=== PATIENT | female | born 1940 | race Caucasian/White ===

== ENCOUNTER → 2017-06-14 | Outpatient (CLI) | payer OTHER, MEDICARE | LOC: BHFA 16:15 | PROVIDERS: ATTEND Internal Medicine Cardiovascular Disease | DX: I25.10 Atherosclerotic heart disease of native coronary artery without angina pectoris (principal); I10 Essential (primary) hypertension ==

== ENCOUNTER → 2017-07-12 | Outpatient (CLI) | payer OTHER, MEDICARE | LOC: FIMAGING 12:51 | PROVIDERS: ATTEND Internal Medicine | DX: S62.111A Displaced fracture of triquetrum [cuneiform] bone, right wrist, initial encounter for closed fracture (principal) ==

== ENCOUNTER → 2017-08-06 | Outpatient (CLI) | payer OTHER, MEDICARE | LOC: BHFA 13:15 | PROVIDERS: ATTEND Internal Medicine | DX: I25.10 Atherosclerotic heart disease of native coronary artery without angina pectoris (principal); I49.9 Cardiac arrhythmia, unspecified ==

== ENCOUNTER → 2017-10-28 | Outpatient (CLI) | payer OTHER, MEDICARE | LOC: BHFA 15:30 | PROVIDERS: ATTEND Internal Medicine Cardiovascular Disease | DX: I37.9 Nonrheumatic pulmonary valve disorder, unspecified (principal); I25.10 Atherosclerotic heart disease of native coronary artery without angina pectoris ==

== ENCOUNTER 2018-04-22 19:56 | Inpatient (IN) | payer OTHER, MEDICARE ==
[2018-04-22] MEDS ORDERED: LORazepam 0.5 MG TAB PO PRN (22:52)
[2018-04-22] MEDS ORDERED: SKIN ADHESIVE (DERMABOND) 1 EACH TP ONE (22:54)
[2018-04-22] MEDS ORDERED: NS 1,000 ML IV SCH (23:00)
--- NOTE | 2018-04-22 23:13 | EDPHY ---
H & P Stated Complaint: tripped and fell , no ,loc r wrist pain and r hip no walk - Personal History Current Tetanus/Diphtheria Vaccine: No Current Tetanus Diphtheria and Acellular Pertussis (TDAP): No - Medical/Surgical History Hx Asthma: No Hx Chronic Respiratory Disease: No Hx Diabetes: No Hx Cardiac Disease: Yes Hx Renal Disease: No Hx Cirrhosis: No Hx Alcoholism: No Hx HIV/AIDS: No Hx Splenectomy or Spleen Trauma: No Other PMH: benighn tremor, junctional tachycardia, chronic eyelash problems, hypothyroid, NIKOLSKI - Social History Smoking Status: Never smoked Time Seen by Provider: 04/22/18 20:10 HPI/ROS: Chief complaint: Trip and fall with right wrist and right hip pain History of present illness: This is a 78-year-old female who lives in [facility] who presents to the emergency department for evaluation after sustaining a mechanical trip and fall injuring her right wrist and hip. She was outside walking when she tripped over a curb. She did hit her head and sustained a small cut. She did not lose consciousness. No report of headache. No report of neck pain, back pain, chest pain, abdominal pain, no report of neurologic symptoms including paresthesias, or paralysis or bowel or bladder dysfunction. Review of systems: A 10 point review of systems was obtained and other than described above was negative (Sajan Reilly) - Physical Exam Exam: General Appearance: Alert, nontoxic Eyes: PERRLA ENT: No hemotympanum, no dee sign, no raccoon eyes Respiratory: Lungs clear to auscultation bilaterally Cardiac: Regular rate and rhythm. Gastrointestinal: Bowel sounds normal. Abdomen is soft, nondistended, nontender Neurological: Alert. Strength and sensation intact and symmetrical. Skin: 1 cm laceration approximates well to the right forehead Musculoskeletal: The head is nontender. The spine is nontender. The chest wall is nontender. Patient's right wrist is tender, hip is uncomfortable to palpation, difficulty moving the right hip. The rest of the extremities are unremarkable. (Sajan Reilly) Constitutional: Initial Vital Signs Temperature (C) 36.8 C 04/22/18 19:59 Heart Rate 67 04/22/18 19:59 Respiratory Rate 16 04/22/18 19:59 Blood Pressure 159/84 H 04/22/18 19:59 O2 Sat (%) 93 06/01/18 19:59 O2 Delivery Mode Room Air Allergies/Adverse Reactions: hydrocodone bitartrate [From Lortab] Allergy (Verified 04/22/18 20:04) tapentadol [From Nucynta] Allergy (Verified 04/22/18 20:05) Home Medications: Medication Instructions Recorded Propranolol HCl [Inderal] 10 mg PO TID PRN 11/16/15 Amoxicillin/Potassium Clav 1 tab PO BID 04/23/18 [Amox-Clav 500-125 mg Tablet] Aspirin EC [Aspirin EC 81 mg (*)] 81 mg PO DAILY 04/23/18 Levothyroxine Sodium 75 mcg PO DAILY 04/23/18 Magnesium Oxide [Magnesium Oxide 200 mg PO 5XD PRN 04/23/18 400 mg (*)] Tears/Dextran 70/Hypromellose 1 drop EACHEYE DAILY PRN 04/23/18 [Natural Balance Tears (*)] Medical Decision Making - Diagnostics Imaging: Discussed imaging studies w/ call center operations manager Radiologist, I viewed and interpreted images myself Procedures: Procedure: Laceration repair. Verbal consent was obtained from the patient. The 1 cm laceration on the right forehead was anesthetized in the usual fashion. The wound was irrigated, draped and explored to its base with a gloved finger. There were no deep structures involved. No tendon injury was identified. The wound was repaired with Dermabond. The wound repair was simple. The procedure was performed by myself. (Sajan Reilyl) ED Course/Re-evaluation: Patient is seen under the supervision of my secondary supervising physician Dr. Lorri Maldonado. Patient presents to the emergency room after a mechanical trip and fall. She has sustained a right wrist fracture and right-sided pelvic fracture. She is unable to ambulate. I have consulted with the hospitalist, Dr. Jesika Patton who will accept this patient. I have consulted with Orthopedics, Dr. Meir Wilkerson who will consult on this patient. He recommends a Velcro splint for the right wrist. Plan has been discussed with the patient voiced understanding and agreement with it. (Sajan Reilly) The patient was evaluated and managed by the physician therapeutic recreation assistant. I have reviewed this chart and I agree with the findings and plan of care as documented , as indicated by my signature. I am the secondary supervising physician. ( Lorri Maldonado) Differential Diagnosis: Included but not limited to contusion, sprain or strain, bony fracture, no evidence of precipitating event such as syncope (Sajan Reilly) - Data Points Medications Given: Enoxaparin Sodium (Lovenox) 40 mg SC DAILY MINISTERIO Stop: 10/20/18 08:59 Last Admin: 04/23/18 09:34 Dose: 40 mg Morphine Sulfate (Morphine) 1 - 2 mg IVP Q2HRS PRN PRN Reason: Pain, Breakthrough Stop: 05/03/18 01:29 Last Admin: 04/23/18 04:23 Dose: 2 mg Ondansetron HCl (Zofran) 4 mg IVP Q4HRS PRN PRN Reason: Nausea/Vomiting, Can't Take PO Stop: 10/19/18 22:51 Last Admin: 04/23/18 00:28 Dose: 4 mg Throat Lozenges (Cepacol Lozenge) 1 ea PO PRN PRN PRN Reason: Sore Throat Stop: 10/20/18 01:51 Last Admin: 04/23/18 02:31 Dose: 1 ea Discontinued Medications Acetaminophen (Tylenol) 650 mg PO Q6HRS PRN PRN Reason: Pain, Mild/Fever, Can Take PO Stop: 10/20/18 00:29 Last Admin: 04/23/18 11:16 Dose: 650 mg Sodium Chloride (Ns) 1,000 mls @ 75 mls/hr IV CONT MINISTERIO Stop: 10/19/18 22:59 Last Admin: 04/23/18 00:32 Dose: 1,000 mls Levothyroxine Sodium (Synthroid) 88 mcg PO DAILY AT 6AM MINISTERIO Stop: 10/20/18 05:59 Last Admin: 04/23/18 06:10 Dose: 88 mcg Magnesium Oxide (Magnesium Oxide) 400 mg PO HS MINISTERIO Stop: 10/20/18 00:44 Last Admin: 04/23/18 02:38 Dose: Not Given Morphine Sulfate (Morphine) 1 - 4 mg IVP Q3HRS PRN PRN Reason: Pain, Breakthrough Stop: 05/02/18 22:51 Last Admin: 04/23/18 02:29 Dose: 2 mg Departure - Departure Clinical Impression: Wrist fracture, right Qualifiers: Encounter type: initial encounter Fracture type: closed Qualified Code(s): S62.101A - Fracture of unspecified carpal bone, right wrist, initial encounter for closed fracture Pelvic fracture Qualifiers: Encounter type: initial encounter Pelvic bone location: unspecified part of pelvis Fracture type: closed Fracture alignment: nondisplaced Qualified Code(s) : S32.9XXA - Fracture of unspecified parts of lumbosacral spine and pelvis, initial encounter for closed fracture Forehead laceration Qualifiers: Encounter type: initial encounter Qualified Code(s): S01.81XA - Laceration without foreign body of other part of head, initial encounter
--- NOTE | 2018-04-23 00:26 | PDGENHP ---
History and Physical - Chief Complaint Right hip pain, right wrist pain, fall - History of Present Illness Source-patient provides history appears reliable. EMR was reviewed and case discussed with ED provider. HPI-this is a very pleasant 78-year-old female with past medical history significant for HTN, hypothyroidism and osteoporosis who presents emergency department today following a mechanical fall while trying to step up occur. Patient denies any associated lightheadedness, chest pain or palpitations. She reports a chronic history of some mild dyspnea with any outdoor contact and a description of recurrent generalized weakness whenever she goes outside.. She denies any acute change from this baseline today. Patient missed stepped trying to get open over the curve which she attributes to this experience of generalized weakness making it difficult for her to lift her leg up over the occur. She denies any focal deficits prior to this event or after. She did strike the right side of her head, her right arm and right leg. Patient denies any numbness or tingling. She denies any current headache, chest pain, palpitations, shortness of breath. Patient is complaining of muscle spasms in the proximal leg and pelvis. She denies any fevers chills or recent illness. History Information - Allergies/Home Medication List Allergies/Adverse Reactions: acetaminophen [From Lortab] Allergy (Verified 04/22/18 20:04) hydrocodone bitartrate [From Lortab] Allergy (Verified 04/22/18 20:04) tapentadol [From Nucynta] Allergy (Verified 04/22/18 20:05) Home Medications: H R T 11/16/15 [Last Taken Unknown] Levothyroxine [Synthroid] 88 mcg PO DAILY06 11/16/15 [Last Taken Unknown] Propranolol HCl [Inderal] 10 mg PO 11/16/15 [Last Taken Unknown] I have personally reviewed and updated: family history, medical history, social history, surgical history - Past Medical History Additional medical history: HTN, hypothyroidism, osteoporosis. Patient also reports that she had an extensive cardiac workup including stress test, echocardiogram and cardiology consultation in 2017 which was negative. - Surgical History Additional surgical history: Right patellar fracture repair, cataract extraction with lens placement, right 2nd hammertoe - Family History Additional family history: Patient denies any HTN, dm 2, osteoporosis. - Social History Smoking Status: Never smoked Alcohol Use: None Drug Use: None Additional social history: Patient resides in independent living at [facility]. Cor status is DNR DNI. Review of Systems Review of Systems: ROS: 10pt was reviewed & negative except for what was stated in HPI & below Constitutional: Reports: no symptoms, weakness (See HPI generalized 1 outdoors.) . Denies: chills, fever EENMT: Reports: no symptoms Cardiac: Reports: no symptoms Respiratory: Reports: shortness of breath. Denies: cough Gastrointestinal: Reports: no symptoms Genitourinary: Reports: no symptoms Muscolosketal: Reports: muscle pain (Right wrist, right hip) Skin: Reports: other (Abrasion to right forehead) Neurological: Reports: no symptoms, weakness (Generalized see above). Denies: numbness, tingling Hematologic/Lymphatic: Reports: no symptoms Physical Exam Physical Exam: Selected Entries 04/22/18 19:59 Blood Pressure Automatic Method Heart Rate 67 Respiratory 16 Rate O2 Sat (%) 93 Temperature (C) 36.8 C Blood Pressure 159/84 H Mean Arterial 109 H Pressure (MAP) O2 Delivery Room Air Mode Temperature Oral Source Temp Pulse Resp BP Pulse Ox 36.5 C 73 17 146/69 H 92 04/22/18 23:46 04/22/18 23:46 04/22/18 23:46 04/22/18 23:46 04/22/18 23:46 Constitutional: no apparent distress, chronically ill appearing, uncomfortable, other (NAD. Patient lays comfortably in bed. Pleasant adult female. Quite anxious.) Eyes: PERRL, anicteric sclera, EOMI, No scleral injection Ears, Nose, Mouth, Throat: no oral mucosal ulcers, dry mucous membranes, other ( No nasal discharge.), No poor dentition Cardiovascular: regular rate and rhythym, no murmur, rub, or gallop, No systolic murmur, No edema Peripheral Pulses: 2+: dorsalis-pedis (R), dorsalis-pedis (L) Respiratory: no respiratory distress, no rales or rhonchi, clear to auscultation , No respiratory distress Gastrointestinal: normoactive bowel sounds, soft, non-tender abdomen, no palpable masses, No distension (Abdomen soft but full) Genitourinary: no bladder tenderness, No antunez in urethra Skin: warm, abrasion (Right forehead and temp), No rash Musculoskeletal: pain with ROM (Right wrist, right hip), generalized weakness Neurologic: AAOx3, sensation intact bilaterally, CN II-XII Intact, other ( Nonfocal exam.), No numbness, No facial droop Psychiatric: interacting appropriately, not encephalopathic, thought process linear, anxious, No depressed, No suicidal ideation, No poor insight, No poor judgement, No poor memory Lab Data & Imaging Review 04/22/18 22:55 04/22/18 22:55 WBC 10.74 10^3/uL (3.80-9.50) H 04/22/18 22:55 RBC 4.67 10^6/uL (4.18-5.33) 04/22/18 22:55 Hgb 14.6 g/dL (12.6-16.3) 04/22/18 22:55 Hct 42.5 % (38.0-47.0) 04/22/18 22:55 MCV 91.0 fL (81.5-99.8) 04/22/18 22:55 MCH 31.3 pg (27.9-34.1) 04/22/18 22:55 MCHC 34.4 g/dL (32.4-36.7) 04/22/18 22:55 RDW 13.8 % (11.5-15.2) 04/22/18 22:55 Plt Count 306 10^3/uL (150-400) 04/22/18 22:55 Sodium 138 mEq/L (135-145) 04/22/18 22:55 Potassium 3.7 mEq/L (3.3-5.0) 04/22/18 22:55 Chloride 101 mEq/L (97-110) 04/22/18 22:55 Carbon Dioxide 28 mEq/l (22-31) 04/22/18 22:55 Anion Gap 9 mEq/L (8-16) 04/22/18 22:55 BUN 18 mg/dL (7-23) 04/22/18 22:55 Creatinine 0.6 mg/dL (0.6-1.0) 04/22/18 22:55 Estimated GFR > 60 04/22/18 22:55 Glucose 102 mg/dL (70-100) H 04/22/18 22:55 Calcium 8.8 mg/dL (8.5-10.4) 04/22/18 22:55 Imaging Review: Right Hip, Two Views Indication: R/O FX Technique: AP and crosstable lateral views. Comparison: None Findings: The demineralized bones are anatomically aligned. No displaced femoral neck fracture. The pelvic ring is intact. Sclerotic symmetric foci in bilateral inferior pubic rami are suggestive of old or subacute fractures. Impression: 1. No femoral neck fracture. 2. Age indeterminate inferior pubic rami fractures, favor old/subacute. Right Wrist Series, 4 views 20:16 Indication: R/O FX FALL. Comparison: Right wrist series dated July 12, 2017 Findings: A comminuted intra-articular distal radius fracture consists of a transverse fracture and an oblique intra-articular fracture coursing through the base of the radial styloid. The radial styloid fracture fragment is translated volarly. No significant articular step- off. The distal ulna and carpal bones are intact. Specifically,, no navicular fracture. The scapholunate interval is within normal limit. Impression: Acute impacted and displaced intra-articular distal radius fracture. CT right hip without contrast Indication: Right pelvic pain. Inability to bear weight. Recent fall. Technique: 1.5 mm thick helically acquired slices were obtained through the pelvis. The data was reconstructed in soft tissue and bone algorithm. 3-D volume rendered reformations were performed to optimally characterize the potential fracture planes. Comparison: Right hip series dated April 22, 2018. Findings: The right inferior pubic ramus nondisplaced fracture is acute. The left inferior pubic ramus fracture is old and healed with minimal deformity. An acute subtle buckle fracture courses through the posterior cortex of the right pubic bone. A nondisplaced fracture courses through the anterior cortex of the right anterior acetabular column. No acute sacral or femoral neck fracture. The bones are diffusely demineralized limiting sensitivity for detecting fractures. No hematoma or free fluid in the pelvis. Moderate constipation. Urinary bladder is normal. The partially visualized abdominal aorta is normal caliber moderate calcified plaque. Impression: 1. Acute right inferior pubic ramus fracture. 2. Acute buckle fracture right pubic bone. 3. Acute nondisplaced fracture anterior right acetabular column. Findings discussed with Emergency Department physician assistant teacher primary, MARY Singh at 04/22/2018 22: 35. Visualized and Interpreted imaging results: Yes Assessment & Plan Assessment: 78-year-old female with history HTN, hypothyroidism and osteoporosis who presents emergency department following a mechanical fall without LOC. 1. Acute nondisplaced fracture anterior right acetabular column - patient will be placed on bed rest/nonweightbearing on the right leg pending Orthopedic recommendations in the morning. Do not anticipate any surgical interventions however have made patient NPO pending Ortho evaluation and treatment plan.. 2. Acute right inferior pubic rami fracture - PT OT. Non operative. Plan as above. 3. Acute buckle fracture right pubic bone - as above. 4. Acute right distal radial fracture - patient currently in a Velcro splint as per Orthopedic recommendations. She has good cap refill but is complaining of the splint feeling too tight. 5. Mechanical fall - PT OT consultation. Patient without history of preceding near syncope or chest pain. She has previously had complete cardiac workup do not suspect a arrhythmia, PE or other respiratory issues at this time. Bed alarm in place particularly well patient is receiving narcotics. 6. Acute pain due to trauma - patient is very anxious regarding use of any kind of medications. Her initial allergy list noted acetaminophen with hydrocodone likely combination medication but she denies that she has any issues with plain Tylenol. This is been added. Patient also reports that remotely for surgery she did tolerate morphine quite well without concerns for nausea or sedation. She is amenable to a trial of low-dose morphine. Reassured that antiemetics are available to assist with this side effect. I did clarify with the patient has not in a true allergy and that if she is in a significant amount of pain limiting her ability to mobilize then we should focus on her pain control and she is agreeable to this plan.. Chronic medical problems Benign essential hypertension - blood pressures initially elevated likely related to pain. Blood pressures have improved. Will plan to resume patient's home medications once we can verify her med rec. Hypothyroidism - continue L-thyroxine replacement once we can update med rec. FEN - patient does appear slightly dry. She will receive some IV fluid hydration overnight particularly while she will be NPO pending Orthopedic evaluation in the morning. Electrolytes do not require replacement at this time. PPX-SCDs holding anticoagulation pending Orthopedic evaluation the morning. Cor status-is DNR DNI. Disposition-patient admitted to inpatient status given the multiple fractures and patient limited mobility. Anticipate greater than 2 midnight stay. Consultations-orthopedic surgery consulted from the emergency department. Case Management to assist with evaluation for placement. She does currently reside at [facility].
[2018-04-23] MEDS: ONDANSETRON 4 MG/2 ML VIAL IVP PRN ×2 (00:28→23:20)
[2018-04-23] MEDS ORDERED: ACETAMINOPHEN 325 MG TAB PO PRN (00:30)
[2018-04-23] MEDS ORDERED: MAGNESIUM OXIDE 400 MG TAB PO SCH (00:45)
--- NOTE | 2018-04-23 01:16 | PDMN ---
Medical Necessity Medical necessity: C/M review: est. > 2 MN LOS for acute non displaced fracture anterior right acetabular column, acute right inferior pubic rami fracture, acute buckle fracture right pubic bone, acute right distal radial fracture, acute pain due to trauma, limited mobility, requiring planned Orthopedic consult, Case Management consult, ongoing IV fluids, IV Morphine / IV Zofran as needed, acute inpt PT/OT, comorbid mechanical fall just prior to this admission, benign essential hypertension, hypothyroidism, osteoporosis per H/P.
--- NOTE | 2018-04-23 01:30 | PDCONSULT ---
Visitor Services Assistant Note: Ms. Baugh tripped on a curb and fell yesterday evening before dark. She came to the [facility] ED for evaluation and was found to have multiple injuries and was admitted to the Hospitalist service. Dr. Patton paged me at 01:15 to request a Trauma Service Consultation. My consult note was dictated #[id number] Stacey Menchaca MD, FACS
[2018-04-23] MEDS ORDERED: CEPACOL LOZENGE PO PRN (01:52)
[2018-04-23] MEDS ORDERED: traMADol 50 MG TAB PO PRN (03:59)
[2018-04-23] MEDS ORDERED: LEVOTHYROXINE 88 MCG TAB PO SCH (06:00)
--- NOTE | 2018-04-23 09:22 | TRAUMAPN ---
Trauma Progress Note Assessment/Plan: Follow-up on Mrs. Baugh from consultation early this morning. Patient has no additional complaints. She does report weakness with ambulation outside of her house. Cardiac evaluation prior to this has been negative. Chest x-ray is pending this morning she has complaints of right lower rib pain anteriorly pain with ambulation in her right hip and a possibly a splinter in 1 of her fingers of her right hand. Formal tertiary evaluation be done tomorrow. Follow-up chest x-ray will be reviewed when available. Objective: Vital Signs Temp Pulse Resp BP Pulse Ox 37.2 C 69 16 124/66 H 95 04/23/18 08:00 04/23/18 08:00 04/23/18 08:00 04/23/18 08:00 04/23/18 08:00 Laboratory Results 04/23/18 04:26 04/22/18 22:55 04/22/18 04/23/18 04/24/18 05:59 05:59 05:59 Intake Total 250 Output Total 250 Balance -250 250
[2018-04-23] MEDS: ENOXAPARIN 40 MG/0.4 ML SYR SC SCH (09:34)
--- NOTE | 2018-04-23 09:55 | ASMTCMCOM ---
CM Note CM Note Notes: Patient admitted after a fall at home. She suffered multiple fractures - R pubic rami, R acetabular column, R distal radius. She is NWB on R side. She lives at [facility]. PT/OT evals pending, but I anticipate she'll need SNF rehab. I have sent a referral to and left a message with [facility] requesting a private room. Case Management will follow. Date Signed: 04/23/2018 09:54 AM Electronically Signed By:Yue Atkinson RN
--- NOTE | 2018-04-23 10:05 | GCON ---
[f rep st] CONSULTATION SURGICAL CONSULTATION. DATE OF CONSULTATION: 04/23/2018 CHIEF COMPLAINT: Right hip and wrist pain. HISTORY OF PRESENT ILLNESS: The patient is a 78-year-old female who tripped over curb while walking around her apartment complex at [facility] where she lives independently. The patient struck the right side of her body, broke her fall with her right arm and sustained an injury to her right forehead, right side of her chest, right wrist and right hip. She came to the emergency room was seen and evaluated there. Plain films initially were performed and after attempting ambulation, she experienced severe pain in the right hip and additional imaging with CT was performed which disclosed an acetabular fracture. She was also found to have a right distal radius fracture. She was admitted to the hospitalist service. Dr. Jesika Patton saw the patient and contacted me on 04/23/2018 at 0115 hours for trauma surgical consultation. The patient is in room [facility]. She is awake and alert and is able to recount the entire history of her fall in detail. She does have pain in the right wrist as well as in the right hip and has what she thinks are bruised ribs on the right side. She denies any loss of consciousness. She has had no headaches, visual disturbances. Denies neck, chest, or back pain. PAST MEDICAL HISTORY: Significant for hypothyroidism. PAST SURGICAL HISTORY: ORIF right patellar injury age 21. ALLERGIES: Hydrocodone and tapentadol. CHRONIC MEDICATIONS: HRT, levothyroxine 88 mcg p.o. daily, and propranolol 10 mg p.o. b.i.d. She is a nonsmoker. Denies alcohol use. The patient fell and had a significant pelvic fracture approximately 20 years ago, which healed without operative intervention. Her only surgery is a tubal ligation at age 42. SOCIAL HISTORY: Patient lives independently at [facility]. FAMILY HISTORY: Noncontributory. REVIEW OF SYSTEMS: Pertinent negatives mentioned in history of present illness include no headaches, visual disturbances, nausea, vomiting, abdominal pain, neck, or back pain. Patient has chronic urinary incontinence and wears an adult diaper, although this is not continuous, but intermittent. PHYSICAL EXAMINATION: VITAL SIGNS: Blood pressure 146/69, heart rate 73, respiratory rate 16, O2 saturation is 92% on room air, temperature is 36.5. The patient is a pleasant, somewhat anxious woman who appears her age. HEENT: Patient has a minor laceration over the right eyebrow with some surrounding contusion. There is tenderness of the area, but no crepitus. Pupils are 2 mm, round, reactive to light. The extraocular movements are intact. Trachea is midline. No jugular venous distention. No tenderness of the cervical, thoracic , or lumbar spine. CHEST: Is mildly tender to compression laterally over the right side. There is no anterior sternal tenderness. ABDOMEN: Soft and nontender without hepatosplenomegaly or mass. PELVIS: Is nontender to anterior compression over the pubis. There is tenderness over the lateral compression over the hip. Femoral and pedal pulses are plus 2 and symmetrical. The patient has symmetrical deep tendon reflexes. She has a scar over the right patellar tendon below the knee transversely, which is well healed. There is mild tenderness to flexion of the hip. IMAGING STUDIES: Were reviewed and reveal a minimally displaced anterior column acetabular fracture without associated hip fracture. There is a healed inferior pubic ramus and pubic fracture related to her prior pelvic fracture 20 years ago. There is a comminuted intra-articular fracture of the distal radius on the right side. LABORATORY STUDIES: WBC was 10.7, hemoglobin 14.6, hematocrit 42.5, platelet count 306. Basic metabolic panel: Sodium was 138, potassium 3.7, chloride 101 , bicarb 28, BUN 18, creatinine 0.6, glucose 102, calcium 8.8. IMPRESSION: 1. Status post mechanical fall with closed head injury. No loss of consciousness. 2. Right comminuted distal radius fracture, intra-articular. 3. Nondisplaced anterior column right acetabular fracture without associated hip fracture. 4. History of prior pelvic fracture at age 58. 5. Remote right patellar fracture, age 22. 6. Hypothyroidism. 7. History of urinary incontinence. RECOMMENDATIONS: 1. Recommend orthopedic consultation. Continue immobilization of the right wrist with a volar splint and physical therapy, occupational therapy, speech therapy evaluation per trauma protocols. Comfort measures. Trauma service will follow /[id number]/MODL MTDD
--- NOTE | 2018-04-23 11:26 | GCON ---
[f rep st] CONSULTATION ORTHOPEDIC ER CONSULTATION DATE OF CONSULTATION: 04/23/2018 CHIEF COMPLAINT: 1. Right wrist pain. 2. Right hip pain. DIAGNOSIS: 1. Comminuted intra-articular right distal radius fracture. 2. Right stable pelvis and possible anterior wall acetabular fracture. Please see details of ER H and P and admitting H and P. HISTORY OF PRESENT ILLNESS: A 78-year-old female who lives at [facility]. S he has no grown children. No or boyfriend. She had a mechanical fall. Triaged to the emerg ency room. X-rays of her wrist show an intra-articular distal radius fracture with reasonable latera l alignment, but she failed walking out of the emergency room secondary to right hip pain. X-rays lo oked reportedly negative, but a CT scan showed an inferior rami fracture and possible lucency of the anterior wall of the right acetabulum. Please see details of ER and admitting H and P. PHYSICAL EXAMINATION: GENERAL: Pertinent orthopedic examination reveals a well-appearing female. S he had many questions today at the bedside. UPPER EXTREMITIES: The right wrist had a well-approxima john Velcro splint. Intact EPL, FPL, interossei, and instructor warper. Fingers were not swollen. Wrist is swoll en. Bilateral elbows and shoulders without any pain. ABDOMEN: Soft. PELVIS: Stable. LOWER EXTRE MITIES: Right lower extremity had intact tib ant, gastrocsoleus, EHL, FHL. She is able to bridge up , as well as do heel slides on that side. Imaging reviewed. IMPRESSION: 1. Right distal radius fracture, comminuted, intra-articular. Consider bracing. Followup x-rays in a week. 2. Right pelvis injury with nondisplaced component of the inferior rami and possible anterior wall, nondisplaced. RECOMMENDATION: Elbow weightbearing on the right upper extremity. Full weightbearing on the left up per extremity. Full weightbearing on bilateral lower extremities with a walker for 6 weeks. PT, OT, and case coordination. Anticipate rehab or SNF. Thirty minutes at the bedside. /[id number]/MODL
--- NOTE | 2018-04-23 13:58 | CPEKG ---
Heart Rate: 64 RR Interval: 938 P-R Interval: 172 QRSD Interval: 70 QT Interval: 452 QTC Interval: 467 P [place]: 36 QRS [place]: 23 T Wave [place]: 52 EKG Severity - NORMAL ECG - EKG Impression: SINUS RHYTHM Electronically Signed By: Jose Brown 23-Apr-2018 23:52:17
[2018-04-23] MEDS ORDERED: TEARS/DEXTRAN 70/HYPROMELLOSE 15 ML OPHT.BTL EACHEYE PRN (14:05)
[2018-04-23] MEDS ORDERED: PROPRANOLOL HCL 10 MG TAB PO PRN (14:05)
--- NOTE | 2018-04-23 14:05 | HOSPPROG ---
Hospitalist Progress Note Assessment/Plan: Right inferior pubic ramus fracture, right pubic bone buckle fracture and possible acetabular fracture - appreciate ortho consult. Non-operative. Pt may be full weight bearing on b/l LE's with walker. Cont pain control, PT/OT. Intra-articular, comminuted right distal radius fracture - per ortho, elbow weightbearing on RUE. Pain control, PT/OT. Repeat xray in 1 week. Hypothyroidism - cont levothyroxine Labial lesion - on augmentin, will continue Osteoporosis - discussed bisphosphonate therapy at d/c, pt declines stating she has not tolerated this in the past. Also refuses Ca and Vit D supplements, stating she would prefer to discuss with her PCP. Encouraged PCP f/u to address this. DNR Dispo - cont inpt for acute PT/OT, will likely need SNF. CM consulted. Subjective: Pt doing ok, pain controlled. Taking po. Has some medication questions. Objective: Vital Signs Temp Pulse Resp BP Pulse Ox 36.4 C 65 16 117/56 L 91 L 04/23/18 12:00 04/23/18 12:00 04/23/18 12:00 04/23/18 12:00 04/23/18 12:00 Laboratory Results 04/23/18 04:26 04/22/18 22:55 04/22/18 04/23/18 04/24/18 05:59 05:59 05:59 Intake Total 250 Output Total 250 200 Balance -250 50 - Physical Exam Constitutional: no apparent distress Eyes: PERRL Ears, Nose, Mouth, Throat: moist mucous membranes Cardiovascular: regular rate and rhythym Respiratory: no respiratory distress, clear to auscultation Gastrointestinal: normoactive bowel sounds, soft, non-tender abdomen Skin: warm Musculoskeletal: other (RUE forearm splinted, sensation intact, 2+ radial pulse) Neurologic: AAOx3 Psychiatric: interacting appropriately ICD10 Worksheet Patient Problems: Problems Problem Status Onset Forehead laceration Acute Pelvic fracture Acute Wrist fracture, right Acute
[2018-04-23] MEDS ORDERED: ACETAMINOPHEN 500 MG TAB PO SCH (14:15)
[2018-04-23] MEDS: ACETAMINOPHEN 500 MG TAB PO SCH (15:35)
[2018-04-23] MEDS: MAGNESIUM OXIDE 400 MG TAB PO SCH ×2 (17:05→21:45)
[2018-04-23] MEDS ORDERED: AMOX/CLAVULANATE 500/125 MG TAB PO SCH (21:00)
[2018-04-23] MEDS: AMOX/CLAVULANATE 500/125 MG TAB PO SCH (21:45)
[2018-04-24] MEDS: ACETAMINOPHEN 500 MG TAB PO SCH ×3 (01:29→17:44)
[2018-04-24] MEDS: ENOXAPARIN 40 MG/0.4 ML SYR SC SCH (10:23)
[2018-04-24] MEDS: ASPIRIN EC 81 MG TAB PO SCH (10:24)
[2018-04-24] MEDS: LEVOTHYROXINE 75 MCG TAB PO SCH (10:24)
[2018-04-24] MEDS: AMOX/CLAVULANATE 500/125 MG TAB PO SCH ×2 (10:30→22:02)
[2018-04-24] MEDS ORDERED: CEPACOL LOZENGE PO PRN (13:56)
--- NOTE | 2018-04-24 13:56 | HOSPPROG ---
Hospitalist Progress Note Assessment/Plan: Right inferior pubic ramus fracture, right pubic bone buckle fracture and possible acetabular fracture - appreciate ortho consult. Non-operative. Pt may be full weight bearing on b/l LE's with walker. Cont pain control, PT/OT. Intra-articular, comminuted right distal radius fracture - per ortho, elbow weightbearing on RUE. Pain control, PT/OT. Repeat xray in 1 week. Hypothyroidism - cont levothyroxine Labial lesion - on augmentin, will continue Osteoporosis - discussed bisphosphonate therapy at d/c, pt declines stating she has not tolerated this in the past. Also refuses Ca and Vit D supplements, stating she would prefer to discuss with her PCP. Encouraged PCP f/u to address this. DNR Dispo - cont inpt for acute PT/OT, will need SNF. CM consulted. Subjective: Pt doing much better today. She is able to ambulate. Pain better controlled. No fevers/chills, CP or SOB. Objective: Vital Signs Temp Pulse Resp BP Pulse Ox 37.0 C 64 16 105/48 L 94 04/24/18 12:00 04/24/18 12:00 04/24/18 12:00 04/24/18 12:00 04/24/18 12:00 Laboratory Results 04/23/18 04:26 04/22/18 22:55 04/23/18 04/24/18 04/25/18 05:59 05:59 05:59 Intake Total 550 Output Total 250 500 450 Balance -250 50 -450 - Physical Exam Constitutional: no apparent distress Eyes: PERRL Ears, Nose, Mouth, Throat: moist mucous membranes Cardiovascular: regular rate and rhythym, no murmur, rub, or gallop Respiratory: no respiratory distress, clear to auscultation Gastrointestinal: normoactive bowel sounds, soft, non-tender abdomen Skin: warm Musculoskeletal: full muscle strength Neurologic: AAOx3 Psychiatric: interacting appropriately ICD10 Worksheet Patient Problems: Problems Problem Status Onset Forehead laceration Acute Pelvic fracture Acute Wrist fracture, right Acute
--- NOTE | 2018-04-24 14:39 | TRAUMAPN ---
Trauma Progress Note Assessment/Plan: 78-year-old female status post mechanical fall with right facial laceration, right chest contusion, right anterior column acetabular fracture, right distal radius fracture TERTIARY EXAM Neuro: Nonfocal, moving all extremities. Pain does appear to be well controlled, needs to premedicate before activity but has been working with PT and OT. Pulm: Has some right-sided chest tenderness but is stable on room air, lungs are otherwise clear to auscultation bilaterally discussed the importance of incentive spirometer. CV: Hemodynamically stable Abdomen: Soft, nondistended, nontender. Tolerating a regular diet, bowel regimen. Renal: Voiding, urine output has been appropriate. Heme: Stable, on prophylactic Lovenox Id: Afebrile Ortho: Fractures as above. Right upper extremity is splinted, elbow weight- bearing as tolerated. Lower extremities weight-bearing as tolerated with walker and assist device. PT and OT. Extremities: Patient had a splinter in her right upper extremity, was removed at the bedside by myself today. Dispo: Patient will likely qualify for inpatient rehab, working on pain control. No new injuries identified on tertiary exam today. Patient is isolated orthopedic injuries, trauma service to sign off. Subjective: Pain when out of bed and with activity, otherwise doing well. Objective: Vital Signs Temp Pulse Resp BP Pulse Ox 37.0 C 64 16 105/48 L 94 04/24/18 12:00 04/24/18 12:00 04/24/18 12:00 04/24/18 12:00 04/24/18 12:00 Laboratory Results 04/23/18 04:26 04/22/18 22:55 04/23/18 04/24/18 04/25/18 05:59 05:59 05:59 Intake Total 550 Output Total 250 500 450 Balance -250 50 -450
[2018-04-24] MEDS: MAGNESIUM OXIDE 400 MG TAB PO SCH ×2 (18:15→22:03)
[2018-04-25] MEDS: ACETAMINOPHEN 500 MG TAB PO SCH ×2 (01:54→10:13)
[2018-04-25 07:37] VITALS: BP 133/69
[2018-04-25] MEDS: AMOX/CLAVULANATE 500/125 MG TAB PO SCH (08:58)
[2018-04-25] MEDS: LEVOTHYROXINE 75 MCG TAB PO SCH (08:58)
[2018-04-25] MEDS: ASPIRIN EC 81 MG TAB PO SCH (08:58)
[2018-04-25] MEDS: ENOXAPARIN 40 MG/0.4 ML SYR SC SCH (09:00)
--- NOTE | 2018-04-25 09:41 | PDIAF ---
- Diagnosis Diagnosis: fall, pelvic fracture, distal radius fracture Code Status: Do Not Resuscitate - Medication Management Discharge Medications: Medications to Continue on Transfer Propranolol HCl [Inderal 10mg (*)] 10 mg PO TID PRN 11/16/15 [Last Taken ] Amoxicillin/Potassium Clav [Amox-Clav 500-125 mg Tablet] 1 tab PO BID 04/23/18 [ Last Taken 04/22/18] Aspirin EC [Aspirin EC 81 mg (*)] 81 mg PO DAILY 04/23/18 [Last Taken 04/22/18] Levothyroxine Sodium 75 mcg PO DAILY 04/23/18 [Last Taken 04/23/18] Magnesium Oxide [Magnesium Oxide 400 mg (*)] 200 mg PO 5XD PRN 04/23/18 [Last Taken Unknown] Tears/Dextran 70/Hypromellose [Natural Balance Tears (*)] 1 drop EACHEYE DAILY PRN 04/23/18 [Last Taken Unknown] Acetaminophen [Tylenol ES 500 mg (*)] 1,000 mg PO Q8H tab 04/25/18 [Last Taken Unknown] traMADol [Ultram 50 mg (*)] 25 - 50 mg PO Q6HRS PRN #30 tab 04/25/18 [Last Taken Unknown] Discharge Medications: Refer to the Discharge Home Medication list for PRN reason. PICC Care - Routine: N/A - Orders Services needed: Registered Nurse, Physical Therapy, Occupational Therapy Diet Recommendation: no restrictions on diet Activity/Weight Bearing Restrictions: elbow weight bearing RUE, full weight bearing b/l LE's with walker x6 weeks - Follow Up Care Current Providers and Referrals: NONE *PRIMARY CARE P,. [Primary Care Provider] - Rubio Doherty MD [Medical Doctor] -
--- NOTE | 2018-04-25 11:54 | ASMTCMCOM ---
CM Note CM Note Notes: Pt medically stable for d/c to [facility]. Orders sent in [employer]. Transportation arranged with [employer], pt aware of payment requirement. YESENIA Sam to call report. Date Signed: 04/25/2018 11:53 AM Electronically Signed By:YANELI Clark
--- NOTE | 2018-04-25 11:54 | ASDISCHSUM ---
Discharge Information Plan Status:SNF Medically Cleared to Leave: Discharge Date:04/25/2018 11:33 AM CM D/C Disposition:Halfway Facility ADT D/C Disposition:Halfway Facility Projected Discharge Date:04/25/2018 11:00 AM Transportation at D/C:Wheelchair Van Discharge Delay Reason: Follow-Up Date:04/25/2018 11:00 AM Discharge Slot: Final Diagnosis: Placement Information Referral Type:*Correction/SNF Referral ID:[id number] Provider Name:[facility]ago Linares [facility] Address 1:[address] Address 2: [facility]:[place] Selection Factors: State:[place] Patient Contact Information Contact Name:MICHELLE Relationship:Other Address: Work Phone: [facility]:[place] Alternate Phone: State/Zip Code:[place] Email: Financial Information Financial Class:Medicare Primary Plan Desc:MEDICARE INPATIENT Primary Plan Number:[id number] Secondary Plan Desc:[employer]/MDR SUPPLEMENT Secondary Plan Number:[id number] Assessment Information [facility] CM Progress Note CM Note CM Note Notes: Patient admitted after a fall at home. She suffered multiple fractures - R pubic rami, R acetabular column, R distal radius. She is NWB on R side. She lives at [facility]. PT/OT evals pending, but I anticipate she'll need SNF rehab. I have sent a referral to and left a message with [facility] requesting a private room. Case Management will follow. Date Signed: 04/23/2018 09:54 AM Electronically Signed By:Yue Atkinson RN [facility] CM Progress Note CM Note CM Note Notes: Pt medically stable for d/c to [facility]. Orders sent in [employer]. Transportation arranged with [employer], pt aware of payment requirement. YESENIA Sam to call report. Date Signed: 04/25/2018 11:53 AM Electronically Signed By:YANELI Clark Intervention Information Intervention Type:*IM-Signed Date of Service:04/25/2018 11:17 AM Patient Type:Inpatient Staff Member:Coral Matt Hours: Discipline: Severity: Comment:
--- NOTE | 2018-04-25 17:54 | GDS ---
[f rep st] DISCHARGE SUMMARY DISCHARGE DIAGNOSES: 1. Ground level fall. 2. Right inferior pubic ramus fracture. 3. Right pubic bone buckle fracture. 4. Possible acetabular fracture. 5. Intra-articular comminuted right distal radius fracture. 6. Hypothyroidism. 7. Osteoporosis. CONSULTANTS: 1. Dr. Keegan Wilkerson, orthopedic surgery. 2. Dr. Eric Menchaca, trauma surgery. HISTORY: For details, please see the history and physical dated April 22, 2018. In brief, the patient is a 78-year-old female who fell after tripping on a curb and suffered multiple fractures. She pres ented to the emergency department, where Trauma Surgery and Orthopedic Surgery were consulted, and daniela ramírez was admitted to the hospital for further management. HOSPITAL COURSE: The patient was admitted to the Medical/Surgical unit. She was advised by Orthoped ic Surgery that she could be elbow weightbearing on her right upper extremity in the setting of a dis pradip radius fracture. This was deemed nonoperative. Her pelvic fractures were also deemed nonoperati ve, and it was recommended by Orthopedic Surgery she may be full weightbearing on her bilateral lower extremities as tolerated. It is recommended she continue to use a walker for 6 weeks. PT/OT evalua tions were obtained, and she was able to ambulate with the assistance of a walker and elbow weightbea ring on the right upper extremity. Her pain was adequately controlled. She notes that she felt over whelming weakness at the time of the fall. She has had previous cardiovascular workups, including a normal stress test in July 2017, as well as an echocardiogram and a clear carotid artery ultraso und. Interestingly, she is able to be very productive on the treadmill at the gym and has no weaknes s with activity at other times. In addition, her neurologic evaluation is nonfocal. She had a lucrecia l TSH. She had no lab abnormalities. There was no evidence of hypotension. We did consider the pos sibility that the beta dwaine could be causing fatigue or weakness, although it does not make sense that this would be isolated to only the outdoors, which is where she feels her symptoms are most sign ificant. Overall, I recommend she have close followup with her primary care physician. Therapy [facility] re[facility]. DISPOSITION: Patient was discharged to SNF rehab in stable condition. FOLLOWUP: 1. Dr. Lavelle Doherty, primary care. 2. Dr. Keegan Wilkerson, orthopedic surgery. DISCHARGE MEDICATIONS: Please see [employer] for completed outpatient medication list. New medications on discharge include acetaminophen 1000 mg p.o. q.8 hours scheduled, tramadol 25 to 50 mg p.o. q.6 h ours p.r.n., #30, no refills. She will continue all other outpatient medications as previously presc ribed, including propranolol 10 mg p.o. t.i.d. p.r.n., magnesium oxide, levothyroxine 75 mcg daily, a spirin 81 mg daily, and she will also complete her course of Augmentin, which she has been taking for a labial lesion. /[id number]/MODL
== END 2018-04-25 11:33 | DRG 535 ==
LOC: EDUNIT# → F3N 23:30
PROVIDERS: ADMIT Family Medicine; ATTEND Family Medicine
PROC: 0HQ1XZZ Repair Face Skin, External Approach (ICD-10-PCS; principal; 2018-04-22)
DX: S32.591A Other specified fracture of right pubis, initial encounter for closed fracture (principal); S32.431A Displaced fracture of anterior column [iliopubic] of right acetabulum, initial encounter for closed fracture; S52.501A Unspecified fracture of the lower end of right radius, initial encounter for closed fracture; S01.81XA Laceration without foreign body of other part of head, initial encounter; S20.219A Contusion of unspecified front wall of thorax, initial encounter; S09.90XA Unspecified injury of head, initial encounter; W01.0XXA Fall on same level from slipping, tripping and stumbling without subsequent striking against object, initial encounter; R53.1 Weakness; I10 Essential (primary) hypertension; E03.9 Hypothyroidism, unspecified; M81.0 Age-related osteoporosis without current pathological fracture; Z66 Do not resuscitate
CPT/HCPCS: 92507-GN; 92523-GN; 97116-GP; 97161-GP; 97166-GO; 97535-GO; G8978-GP-CK; G8979-GP-CI; G8987-GO-CK; G8988-GO-CI; G9168-GN-CH; G9169-GN-CH; G9170-GN-CH; J1650; J2270; J2405; L3908

== ENCOUNTER → 2018-10-21 | Outpatient (CLI) | payer OTHER, MEDICARE | LOC: BHFA 10:45 | PROVIDERS: ATTEND Internal Medicine Interventional Cardiology | DX: I34.0 Nonrheumatic mitral (valve) insufficiency (principal) ==

== ENCOUNTER → 2019-01-13 | Outpatient (CLI) | payer OTHER, MEDICARE ==
[~2019-01-13] MED LIST: GADOBUTROL 10 ML VIAL IVP ONE
== END ==
LOC: FIMAGING 11:40
PROVIDERS: ATTEND Psychiatry & Neurology Neurology
DX: G31.9 Degenerative disease of nervous system, unspecified (principal); R90.82 White matter disease, unspecified; G93.0 Cerebral cysts
CPT/HCPCS: 70553; A9585; 82565-PO

== ENCOUNTER → 2019-04-20 | Outpatient (CLI) | payer OTHER, MEDICARE | LOC: FCPNEURO 15:04 ==